=== PATIENT | female | born 1965 | race Caucasian/White ===

== ENCOUNTER 2024-01-16 10:25 | Emergency (ER) | payer BC, SELFPAY ==
[2024-01-16 10:39] VITALS: BP 137/74; PULSE 90; RESP 18; TEMP 36.1; O2SAT 99
--- NOTE | 2024-01-16 10:49 | ED.SKABFB ---
HPI - Skin/Abscess/Foreign Bdy General Chief complaint: Skin/Abscess/Foreign Body Stated complaint: migraine/rash on scalp Time Seen by Provider: 01/16/24 10:30 Source: patient Mode of arrival: ambulatory Limitations: no limitations History of Present Illness HPI narrative: Sandra is a 58-year-old female patient presenting to the clinic today with complaints of headache, nausea, and a rash on the left side of her scalp. She reports she is also having some left ear discomfort and left eye pain. States she has been under lot of stress-has been on antibiotics for a UTI then had to take nystatin for thrush. Also states that she is on a low-dose prednisone at this time for Crohn's exacerbation. Denies any fever, chills, or body aches. Is concerned about her blood pressure is it is been high at home and she thinks this is causing her headache. Electronic blood pressure is 137/74 and manual blood pressure was 148/88 in the clinic today. States she had a call out to her primary care doctor to send her and a prescription for some blood pressure medications. Related Data Home Medications Medication Instructions Recorded Confirmed prednisone 10 mg tablets in a dose See Rx Instructions .Route .COMPLEX 01/16/24 01/16/24 pack Allergies Allergy/AdvReac Type Severity Reaction Status Date / Time azithromycin AdvReac Intermediate Gastrointestinal Verified 01/16/24 10:48 Upset ciprofloxacin AdvReac Intermediate Muscle Pain Verified 01/16/24 10:49 codeine AdvReac Intermediate Nausea and Verified 01/16/24 10:50 Vomiting fluconazole [From Diflucan] AdvReac Intermediate Nausea and Verified 01/16/24 10:48 Vomiting levofloxacin [From Levaquin] AdvReac Intermediate Gastrointestinal Verified 01/16/24 10:50 Upset morphine AdvReac Mild Hives Verified 01/16/24 10:48 Review of Systems Review of Systems: Pertinent positives per HPI. Patient denies any fever, chills, visual changes, dizziness, cough, runny nose, sore throat, shortness of breath, chest pain, palpitations, vomiting, diarrhea, constipation, abdominal pain, or any urinary issues. PMFSH Comments At the time of my signature, I reviewed and agree with the nursing past medical, surgical, social, and family history. There is no relevant family history pertinent to the patient complaint. Exam Narrative: General: Well-developed, well nourished, in no apparent distress Head: Normocephalic, atraumatic, red, raise erythemic base rash with vesicular lesions to the forehead and scalp on the left side. Eyes: Pupils equally round and reactive to light bilaterally, EOM intact, sclera and conjunctive clear, no discharge, lids normal, Wood's lamp exam was performed and no dendritic lesions were visualized in the left eye Ears: TMs intact and clear, ear canals clear, no drainage, grossly hearing normal. Nose: Nares patent, no discharge, no inflammation, no sinus tenderness. Mouth: Oropharynx without lesions or masses, good dentition, MMM. Neck: Supple, trachea midline, no enlargement of anterior or posterior cervical nodes, no thyroid masses or goiter palpable. Cardio: Regular rate and rhythm, s1 and s2 normal, no murmur appreciated. Resp: Clear to auscultation bilaterally anteriorly and posteriorly, no rhonchi, rales, wheezing or rubs Course Course Emergency Course: Portions of this record may have been created with voice recognition software. Level of Care: Express Care Visit Vital Signs Vital signs: Vital Signs Temperature 36.1 C L 01/16/24 10:39 Pulse Rate 90 01/16/24 10:39 Respiratory Rate 18 01/16/24 10:39 Blood Pressure 137/74 01/16/24 10:39 Pulse Oximetry 99 01/16/24 10:39 Oxygen Delivery Room Air 01/16/24 10:39 Temperature 36.1 C L 01/16/24 10:39 Pulse Rate 90 01/16/24 10:39 Respiratory Rate 18 01/16/24 10:39 Blood Pressure 148/80 H 01/16/24 11:02 Pulse Oximetry 99 01/16/24 10:39 Oxygen Delivery Room Air
[2024-01-16 11:02] VITALS: BP 148/80
== END 2024-01-16 11:06 | disposition home or self-care (01) ==
PROVIDERS: Emergency Provider Nurse Practitioner Family
DX: B02.9 Zoster without complications (principal)
CPT/HCPCS: 99203; A9270; G0463

== ENCOUNTER 2024-12-02 08:43 | Outpatient (CLI) | payer BC, SELFPAY ==
--- OUTSIDE RECORDS SUMMARY | 2024-12-02 08:57 | XMS_ITS | Clinical Summary ---
Author Organization [facility] Address [address] [place] [address] Care Team Providers Care Auditor Name Role Phone Unknown, Provider Primary Care Provider Unavaila ble Source Comments [facility],non-owned Affiliates and Associated Physician Practices is amultiple site organization consisting of ambulatory clinics and hospital sitesin [place], [place], [place] and [place]. This disclosure is being madepursuant to the Care Everywhere program and may not contain all information available regarding this patient. Last updated 18.[facility] Allergies Active Allergy Reactions Criticality Noted Date Comments Azithromycin GI Discomfort Low 06/16/2020 Abdominal pain, vomiting. Prochlorperazine Unknown 12/17/2023 Diflucan Headache Medium 12/15/2020 Patient reports migraine for four days after taking Metronidazole Dizziness Low 12/15/2020 Hydrocodone Vomiting Low 01/10/2021 Levofloxacin Other Medium 05/22/2018 Inability to sleep for 30 plus hours/ anxiety Morphine Itching,Rash Medium 01/27/2013 Medications * Be aware that medications may not be up to date on this document. Alwaysverify current medications with the patient. Medication Sig Dispensed Refills Start Date End Date Status Cholecalciferol (VITAMIN D3) 40542 UNITSIndications:Cr ohn's disease of both small and large intestine without complication (HCC),Medication monitoring encounter,Other specified intestinal malabsorption (HCC) Take 1 (one) capsule by mouth every 7 days Active Multiple Vitamins-Minerals (Multivitamin Adult Extra C) CHEW Take 1 tablet by mouth once daily Active acetaminophen (Tylenol) 325 MG tablet Take 2 (two) tablets by mouth every 4 hours as needed Maximum allowable Acetaminophen amount = 4 Grams (4000 mg) / 24 hours. 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 Monthly or less 12/17/2023 Q2: How many drinks containi ng alcohol do you have on a typical day when you are drinking? 1 or 2 12/17/2023 Q3: How often do you have si x or more drinks on one occasion? Less than monthly 12/17/2023 Overall Financial Resource Strain (CARDIA) Answe r Date Recorded How hard is it for you to pa y for the very basics like food, housing, medical care, and heating? Not hard at all 12/17/2023 [facility] [place] [facility] Occupat ional Health - Occupational Stress Questionnaire Answer Date Recorded Do you feel stress - tense, restless, nervous, or anxious, or unable to sleep at night because your mind is troubled all the time - these days? Not at all 12/17/2023 Hunger Vital Sign Answer Date Recorded Within the past 12 months, y ou worried that your food would run out before you got the money to buy more. Never true 04/17/20 24 Within the past 12 months, t he food you bought just didn't last and you didn't have money to get more. Never true 12/17/2023 PRAPARE - Transportation Answer Date Re corded In the past 12 months, has l ack of transportation kept you from medical appointments or from getting medications? No 11/30 In the past 12 months, has l ack of transportation kept you from meetings, work, or from getting things needed for daily living? No 12/17/2023 Housing Stability Vital Sign Answer Chuck e Recorded In the last 12 months, was t here a time when you were not able to pay the mortgage or rent on time? No 12/17/2023 In the last 12 months, how many places have you lived? 1 12/17/2023 In the last 12 months, was t here a time when you did not have a steady place to sleep or slept in a half-way (including now)? No 12/17/2023 Sex and Gender Information Value Date Recorded Sex Assigned at Not on file Gender Identity Not on file Sexual Orientation Not on file Last Filed Vital Signs Vital Sign Reading Time Taken Comments Blood Pressure 146/96 08/30/2024 12:42 PM PROFESSIONAL ADVISOR Pulse 78 08/30/2024 12:42 PM PROFESSIONAL ADVISOR Temperature 36.6 C (97.8 F) 08/30/2024 12:42 PM PROFESSIONAL ADVISOR Respiratory Rate 18 12/21/2023 7:42 AM CDT Oxygen Saturation 100% 08/30/2024 12: 42 PM PROFESSIONAL ADVISOR Inhaled Oxygen Concentration - - Weight 114.5 kg (252 lb 6.4 oz) 024 12:42 PM PROFESSIONAL ADVISOR Height 170.2 cm (5' 7 ) 08/30/2024 12:4 2 PM PROFESSIONAL ADVISOR Body Mass Index 39.53 08/30/2024 12:42 PM PROFESSIONAL ADVISOR Plan of Treatment Upcoming Encounters Date Type Department Care Team (Latest Contact Info) Description 12/17/2024 10:15 AM CDT Hospital Encounter [facility] ENDOSCOPY [address] [place] [phone] Justina Henry MD [address] [place] [phone] Surgery General 12/17/2024 10:15 AM CDT - 12/17/2024 11:00 AM CDT Surgery [facility] ENDOSCOPY [address] [place] [phone] Justina Henry MD [address] [place] [phone] COLONOSCOPY SCREEN w/ shmais 12/24/2024 9:30 AM CDT Appointment [facility] MRI [address] [place] [phone] Tabatha Viveros PA-C [address] [place] [phone] 02/03/2025 1:30 PM CDT Office [place] [facility] [place] [address] [place] [address], [place] [phone] Justina Henry MD [address] [place] [phone] Scheduled Procedures Name Priority Associated Diagnoses Date/Ti me COLONOSCOPY SCREEN Screening for malignant neoplasm of colon Crohn's disease of both small and large intestine without complication (HCC) 12/17/2024 10:15 AM CDT Health Maintenance Due Date Last Done Comments COLOGUARD (AGES 45-75) - COLON CA SCREENING 1965 CT COLONOGRAPHY - COLON CA SCREENING 1965 FIT - COLON CA SCREENING 1965 FLEX SIG - COLON CA SCREENING 1965 PAP SMEAR 1965 COVID-19 VACCINE (#1) 1972 HIV SCREENING 1982 HEPATITIS C SCREENING 04/29/1985 DTAP/TDAP/TD VACCINES (1 - Tdap) 1986 HEPATITIS B VACCINE (1 of 3 - 19+ 3-dose series) 1986 PNEUMOCOCCAL VACCINE 50+ (1 of 2 - PCV) 1986 ZOSTER VACCINE (1 of 2) 1986 DEPRESSION SCREENING 09/01/2024 INFLUENZA VACCINE (Season Ended) 2025 MAMMOGRAM 07/15/2026 07/15/2024, 03/0 04/2024, 11/03/2023 SCREENING FOR DIABETES 12/18/2026 , 12/18/2023, 07/10/2020, Additional history exists LIPID TESTING 06/03/2029 06/03/2024, 06/04/2019 COLON MONITORING 12/11/2032 12/11/2022, 08/2023, 01/10/2021, Additional history exists COLONOSCOPY - COLON CA SCREENING 12/11/2032 12/11/2022, 12/11/2022, 01/10/2021, Additional history exists Colorectal Cancer Screening 12/11/2032 HIB VACCINE Aged Out No longer eligi ble based on patient's age to complete this topic HPV VACCINE Aged Out No longer eligi ble based on patient's age to complete this topic MENINGOCOCCAL (Group B) VACCINE SHARED DECISION-MAKING Aged Out No longer eligible based on patient's age to complete this topic MENINGOCOCCAL GROUPS A/C/Y/W VACCINE Aged Out No longer eligible based on patient's age to complete this topic Goals Goal Patient Goal Type Associated Problems Recent Progress Patient-Stated? Author Safety General On track( 020 1:26 PM CDT) No Chely Burris, CONG Note: Expected end date: Ongoing Interventions: Your nurse will assess your risk for falls/injury each visit Use appropriate and safe transfer methods Medication Management General On track( 024 10:41 AM CDT) No Chely Burris, CONG Note: Expected end date: Ongoing Interventions: Take all medications as prescribed Let your doctor know right away about any changes in your medications Medication Management General No Jazmín Santos RN Note: Expected end date: ONGOING Interventions: Take all medications as prescribed Let your doctor know right away about any changes in your medications Make sure to request a refill of your medication at least one week prior to your last dose Procedures Procedure Name Priority Date/Time Associated Diagnosis Comments BASIC METABOLIC PANEL (CALCIUM TOTAL) AM Draw 12/19/2023 6:34 AM CDT ENDOSCOPY, COLON, SCREENING Routine 12/11/2022 8:10 AM CDT LIPID PROFILE Routine 06/04/2019 11:47 AM CDT Crohn's disease of both small and large intestine without complication Medication monitoring encounter Other specified intestinal malabsorption from Last 3 Months or Most Recently Relevant to Health Maintenance Results * (ABNORMAL) BASIC METABOLIC PANEL (CALCIUM TOTAL) (12/19/2023 6:34 AM CDT) Pathologist [facility] Glucose 112(H) 70 - 105 mg/dL 12/19/2023 7:00 AM CDT [facility] Sodium 139 136 - 145 mmol/L 12/19/2023 7:00 AM CDT [facility] Potassium 4.1 3.5 - 5.1 mmol/L 12/19/2023 7:00 AM CDT [facility] Chloride 105 98 - 107 mmol/L 12/19/2023 7:00 AM CDT [facility] CO2 25 22 - 29 mmol/L 12/19/2023 7:00 AM CDT [facility] Calcium 8.4 8.4 - 10.4 mg/dL 12/19/2023 7:00 AM CDT [facility] Anion Gap 9 6 - 16 mmol/L 12/19/2023 7:00 AM CDT [facility] BUN 15 7 - 26 mg/dL 12/19/2023 7:00 AM CDT [facility] Creatinine 0.63 0.57 - 1.11 mg/dL 12/19/2023 7:00 AM CDT [facility] eGFR by CKD-EPI >90 >=90 mL/min/1.7 3 m2 12/19/2023 7:00 AM CDT [facility] Blood BLOOD SPECIMEN / Unknown Lab Venipuncture / Unknown 12/19/2023 6:34 AM CDT 12/19/2023 6:42 AM CDT Cj Hernandez MD LAB - CHEMISTRY QUINTIN MOTA [facility] Organization Address City/State/ZIP Co de Phone Number -[facility] [address] [place] [address] * ENDOSCOPY, COLON, SCREENING (12/11/2022 8:10 AM CDT) Report Endoscopy POC Endoscopy Department Report _ Patient Name: Sandra Lucas Procedure Date: 12/11/2022 8:10 AM Date of : 1965 Classification: Outpatient Gender: Female Ethnicity: Not or Race: White _ Providers: Kelsie Meyers (Labundy)MD, Dustin Trotter (Fellow) Referring MD: Ze Nevarez MD (Referring MD), Jorge Farr (Referring MD) Procedure: Colonoscopy Indications: Crohn's disease activity assessment. Last colonoscopy 2020. Currently of Crohn's medical therapy. Medications: Monitored Anesthesia Care Patient Profile: 57 yo F with history of ileocolonic Crohn's disease presenting for colonoscopy off therapy. Description of Procedure: Pre-Anesthesia Assessment: - Prior to the procedure, a History and Physical was performed, and patient medications and allergies were reviewed. The patient's tolerance of previous anesthesia was also reviewed. The risks and benefits of the procedure and the sedation options and risks were discussed with the patient. All questions were answered, and informed consent was obtained. Prior Anticoagulants: The patient has taken no previous anticoagulant or antiplatelet agents. ASA Grade Assessment: III - A patient with severe systemic disease. After reviewing the risks and benefits, the patient was deemed in satisfactory condition to undergo the procedure. After I obtained informed consent, the scope was passed under direct vision. Throughout the procedure, the patient's blood pressure, pulse, and oxygen saturations were monitored continuously. The CF-[id number] was introduced through the anus and advanced to the cecum, identified by appendiceal orifice and ileocecal valve. The colonoscopy was performed without difficulty. The patient tolerated the procedure well. The quality of the bowel preparation was evaluated using the BBPS ([place] Bowel Preparation Scale) with scores of: Right Colon = 3, Transverse Colon = 3 and Left Colon = 3 (entire mucosa seen well with no residual staining, small fragments of stool or opaque liquid). The total BBPS score equals 9. The terminal ileum, ileocecal valve, appendiceal orifice, and rectum were photographed. Findings: The perianal and digital rectal examinations were normal. There was evidence of a prior end-to-side ileo-colonic anastomosis in the cecum. This was patent and was characterized by edema, erythema, friable mucosa and ulceration. The anastomosis was not traversed but the ileum could be viewed beyond it. The area of anastamosis was biopsied with a cold forceps for histology. The terminal ileum appeared normal (although not intubated). This was biopsied with a cold forceps for histology. There is no endoscopic evidence of erythema, inflammation or polyps in the entire colon. Multiple biopsies were obtained with cold forceps for histology randomly right and left colon. A few small-mouthed diverticula were found in the left colon. External hemorrhoids were found during retroflexion. The hemorrhoids were small. Estimated Blood Loss: Estimated blood loss was minimal. Complications: No immediate complications. Impression: - Patent end-to-side ileo-colonic anastomosis, characterized by edema, erythema, friable mucosa and ulceration. Biopsied. - The examined portion of the ileum was normal (visible but not intubated). Biopsied. - Diverticulosis in the left colon. - External hemorrhoids. - Multiple biopsies were obtained right and left colon. Recommendation: - Patient has a contact number available for emergencies. The signs and symptoms of potential delayed complications were discussed with the patient. Return to normal activities tomorrow. Written discharge instructions were provided to the patient. - Resume previous diet. - Continue present medications. - Await pathology results. - Repeat abdominal imaging in mid to late December (last MRE completed Oct 2022) Procedure Code(s): --- Professional --- 64873, Colonoscopy, flexible; with biopsy, single or multiple Diagnosis Code(s): --- Professional --- K50.10, Crohn's disease of large intestine without complications Z98.0, Intestinal bypass and anastomosis status K64.4, Residual hemorrhoidal skin tags K57.30, Diverticulosis of large intestine without perforation or abscess without bleeding CPT copyright 2019 [employer]. All rights reserved. The codes documented in this report are preliminary and upon cpc coder review may be revised to meet current compliance requirements. Kelsie Meyers MD (Labundy) 12/11/2022 9:58:11 AM Note Initiated On: 12/11/2022 8:10 AM Number of Addenda: [address] [employer]ATION 12/11/2022 8:10 AM CDT Kelsie Meyers MD GI PROCEDURE ORDE NAKUL [facility] [employer] * (ABNORMAL) LIPID PROFILE (06/04/2019 11:47 AM CDT) Cholesterol Total 199 <200 mg/dL 06/04/2019 1:34 PM [facility] HDL 75 >40 mg/dL 06/04/2019 1:34 PM [facility] Comment: ATP III Classification of HDL Cholesterol: <40 mg/dL: Considered a major risk factor. >60 mg/dL: Considered a negative risk factor. LDL Calculated 109(H) <100 mg/dL 06/04/2019 1:34 PM [facility] Comment: ATP III Classification of LDL Cholesterol: <100 mg/dL: Optimal 100 - 129 mg/dL: Near Optimal/Above Optimal 130 - 159 mg/dL: Borderline High 160 - 189 mg/dL: High >190 mg/dL: Very High Triglycerides 74 <150 mg/dL 06/04/2019 1:34 PM [facility] Comment: ATP III Classification of Triglycerides: <150 mg/dL: Normal 150 - 199 mg/dL: Borderline High 200 - 400 mg/dL: High >500 mg/dL: Very High Blood BLOOD SPECIMEN / Unknown Lab Venipuncture / Unknown 06/04/2019 11:47 AM CDT 06/04/2019 12:07 PM CDT Kelsie Meyers MD LAB - CHEMISTRY O RDERABLES [facility] [address] [place] [address] from Last 3 Months or Most Recently Relevant to Health Maintenance Advance Directives * Full Code (Latest Code Status on File) Date Activated Date Inactivated Comments 12/17/2023 4:29 PM 12/21/2023 11:39 AM Care Teams Auditor Relationship Specialty Start Date End Date Unknown, Provider PCP - General 04/22/24
--- OUTSIDE RECORDS SUMMARY | 2024-12-02 08:57 | XMS_ITS | Clinical Summary ---
Author Organization [facility] Address [address] [place] [address] Care Team Providers Care Pleat Taper Name Role Phone Erna West MD Primary Care Provider + Allergies Active Allergy Reactions Criticality Noted Date Comments Azithromycin GI Upset,Vomiting Low 06/16/2020 Abdominal pain, vomiting. Ciprofloxacin Joint Pain 04/30/2024 Fluconazole Dizziness,Headache Medium 12/15/2020 Patient reports migraine for four days after taking Hydrocodone GI Upset,Vomiting Low 01/10/2021 Levofloxacin Hallucinations,Hyper act amanda,Tachycardia,Other (see comment) Medium 05/22/2018 Inability to sleep for 30 plus hours/ anxiety Metronidazole Dizziness Low 12/15/2020 Morphine Sulfate Atopic Dermatitis,Itching 04/30/2024 Prochlorperazine Unknown 12/17/2023 Medications albuterol (PROVENTIL) (2.5 MG/3ML) 0.083% nebulizer solution Take 3 mLs (2.5 mg total) by nebulization . 4 Active ipratropium-albut christiana (DUONEB) 0.5-2.5 (3) MG/3ML Solution 4 Active Multiple Vitamins-Minerals (MULTIVITAMIN ADULT EXTRA C OR) Ac tive Cholecalciferol 250 MCG (02829 UT) Cap Take 1 capsule by mouth once a week. Active Cyanocobalamin 100 MCG Tab Take 100 mcg by mouth daily. 4 Active hydroCHLOROthiazi de (MICROZIDE) 12.5 MG tabletIndications :Essential hypertension Take 12.5 mg total by mouth daily 90 tablet 3 4 Active Active Problems Problem Noted Date Diagnosed Date Mild intermittent asthma (HHS/HCC) 06/07/2024 Overview (06/07/2024): Had PFTs a few years ago and it showed mild asthma. Osteopenia 06/03/2024 Overview (06/03/2024): DEXA 03/2023. T score osteopenia in left femoral neck. Normal in L spine. Crohn's colitis, other complication (CMS/HCC HHS /HCC) 04/30/2024 Overview (04/30/2024): Has had it for a couple decades. Had a recent SBO. Had a partial colectomy. Has some stricture in the distal small bowel and some specialists in the past recommended a resection of that area. Did not tolerate biologics. Not currently on anything. Sees Dr. Trotter and Dr. Henry. Assessment & Plan (04/30/2024 9:17 AM CDT): She will update GI labs as requested. Follows with GI at [facility]. Will get records. 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 History of congestive heart failure 04/30/2024 Overview (06/04/2024): Was steroid induced, now resolved. Saw Dr. Rees. Echo 06/2024: The left ventricular size is normal. The left ventricular systolic function is normal. Estimated left ventricular ejection fraction is 55-60%. Left ventricular diastolic function is normal. Wall motion appears normal in all segments. The right ventricular size is normal. Right ventricular systolic function is normal. No significant valvular abnormalities. Assessment & Plan (04/30/2024 9:33 AM CDT): Will attempt to acquire records on this history. It was in the context of high- dose steroids for her Crohn's disease. Will order an echo and referral to cardiology to reestablish. JOE (obstructive sleep apnea) 04/30/2024 Overview (06/01/2024): Moderate JOE on SNAP testing 05/28/24. Assessment & Plan (04/30/2024 9:34 AM CDT): Will order sleep apnea testing to evaluate and determine if this is contributing to her hypertension. Prediabetes 04/30/2024 Chronic bilateral low back pain without sciatica 04/30/2024 Overview (04/30/2024): Chronic low back pain. Reports that she did have an MRI in the past. Notes some increasing weakness. Assessment & Plan (04/30/2024 9:38 AM CDT): Will make arrangements for physical therapy and address further at next visit. Also will request records for her MRI. 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 It swells significantly when she has illness it is present in the right lower abdomen. Consulted with general surgery who did not recommend resection due to complication risk. History of small bowel obstruction 12/17/2023 Essential hypertension 05/22/2018 Overview (04/30/2024): BP has been high every time she goes to the GI physician. Home reading recently was 140-160s/80-90s. Assessment & Plan (04/30/2024 9:18 AM CDT): Not controlled. Will initiate lisinopril 10 mg daily which she will take in the evening. CMP ordered. Vitamin B12 deficiency 02/04/2014 Assessment & Plan (04/30/2024 9:33 AM CDT): Will repeat B12 level to determine if this is a persistent issue. Encounters Date Type Department Care Team Description 09/17/2024 11:15 AM PR MANAGER Office Visit [facility] [phone] Darnell Rees MD CHF (3mo) 09/17/2024 Travel 09/10/2024 Telephone [facility] [address] [place] [phone] Erna West MD Other from Last 3 Months Immunizations Name Administration Dates Next Due Pneumococcal (Prevnar 20) 04/30/2024 Family History Medical History Relation Comments Aortic stenosis Father CHF Father Heart Disease Father Hyperlipidemia Father Hypertension Father Pulmonary embolism Father Cancer Maternal Grandmother Cancer Mother Diabetes Paternal Grandfather Heart Attack Paternal Grandfather Mental Health Sister Relation Status Comments Father Alive Maternal Grandfather Maternal Grandmother Mother Paternal Grandfather Paternal Grandmother Sister Alive Social History Tobacco Use Types Packs/Day Years Used Date Smoking Tobacco: Never Passive Smoke Exposure: Never Smokeless Tobacco: Never Tobacco Cessation:Counseling Given: Not Answered Alcohol Use Standard Drinks/Week Comments Never 0 (1 standard drink = 0.6 oz pur e alcohol) PHQ-2 Answer Date Recorded Patient Health Questionnaire-2 Score 0 06/07/2024 Comments No Sex and Gender Information Value Date Recorded Sex Assigned at Not on file Legal Sex Female 4:03 PM CDT Gender Identity Not on file Sexual Orientation Not on file Last Filed Vital Signs Vital Sign Reading Time Taken Comments Blood Pressure 114/72 09/17/2024 11:20 AM PR MANAGER Pulse 81 09/17/2024 11:20 AM PR MANAGER Temperature 36.1 C (96.9 F) 08/02/2024 9:03 AM PR MANAGER Respiratory Rate 19 08/02/2024 9:03 AM PR MANAGER Oxygen Saturation 94% 09/17/2024 11: 20 AM PR MANAGER Inhaled Oxygen Concentration - - Weight 114.9 kg (253 lb 3.2 oz) 025 11:20 AM PR MANAGER Height 170.2 cm (5' 7 ) 09/17/2024 11:2 0 AM PR MANAGER Body Mass Index 39.66 09/17/2024 11:20 AM PR MANAGER Plan of Treatment Upcoming Encounters Date Type Department Care Team (Late st Contact Info) Description 12/09/2024 10:10 AM CDT Office Visit [facility] [address] [place] [address] Erna West MD [address] [place] [address] 09/16/2025 11:00 AM PR MANAGER Office Visit [facility] [phone] Darnell Rees MD 3 [facility] [address] [place] [address] Health Maintenance Due Date Last Done Comments Cervical Cancer Screening Pa p Smear (Age 30 to 64) Every 3 Years 1967 Hepatitis C 1985 DTaP, Tdap and Td Vaccines ( 1 - Tdap) 1986 Hepatitis B Vaccines (1 of 3 - 19+ 3-dose series) 1986 Zoster Vaccines (1 of 2) 2017 COVID-19 Vaccine (2023-2 5 season) 2024 PHQ-2 (Physician [place]) 09/01/2024 06/07/2024 Annual Physical 06/07/2025 06/07/2024 Mammogram Screening 07/15/2026 07/15/2024, 11/07/2023, 11/03/2023 Cervical Cancer Screening Pa p with HPV Testing (Age 30 to 64) Every 5 Years 11/02/2028 11/03/2023, 10/14/2022 Cervical Cancer Screening wi th HPV 11/02/2028 Colorectal Cancer Screening Colonoscopy (10 Years) 12/11/2033 12/12/2023 Pneumococcal Vaccine: Pediatrics (0 to 5 Years) and At-Risk Patients (6 to 64 Years) Completed 04/30/2024 Meningococcal B Vaccine Aged Out No l onger eligible based on patient's age to complete this topic Meningococcal Vaccine Aged Out No norbert ronan eligible based on patient's age to complete this topic RSV Immunizations Under 20 Months Aged Out No longer eligible b ased on patient's age to complete this topic Procedures Procedure Name Priority Date/Time Associated Diagnosis Comments MG DIAG W DENISE RT DIGI Routine 07/15/2024 10:46 AM PR MANAGER Abnormal finding on breast imaging COLONOSCOPY GENERIC (SCAN ORDER) Routine 12/12/2023 OUTSIDE CYTOPATH CERV/VAG INTERPRET (PAP) 11/03/2023 from Last 3 Months or Most Recently Relevant to Health Maintenance Results * MG DIAG W DENISE RT DIGI (07/15/2024 10:46 AM PR MANAGER) Anatomical Region Laterality Modality Breast Right Mammography 07/15/2024 11:0 8 AM PR MANAGER Impressions 07/15/2024 11:14 AM PR MANAGER ===== IMPRESSION: ===== 1. No mammographic evidence of malignancy. Interval decrease in size of benign- appearing right retroareolar lymph node. Assessment: ACR BI-RADS 2 - BENIGN FINDING(S) Recommendation: 1:Routine Screening Bilateral Comments: Ordered By: ERNA WEST Interpreted By: Porfirio Grace, 07/15/2024 11:08 AM Narrative 07/15/2024 11:14 AM PR MANAGER [facility] [place] [address] EXAMINATION: Digital right diagnostic mammogram with 3-D tomosynthesis. Right breast ultrasound [id number] EXAM DATE/TIME: 07/15/2024 10:45 AM REASON FOR EXAM: abnormal mammogram/usn, 6 month follow up COMPARISON: 11/03/2023. 11/07/2023 TECHNIQUE: Digital diagnostic mammography of the right breast was performed in addition to 3-D Tomosynthesis technique. This study was read with the assistance of a computer-aided detection system. TISSUE DENSITY: There are scattered areas of fibroglandular density. Findings:Previously identified right retroareolar nodule is smaller on today's exam and barely perceptible. Best seen on MLO images. No malignant microcalcifications.. Ultrasound at the 9:00 position of the right breast 2.5 cm from the nipple. There is a well-defined hypoechoic nodule with fatty hilum. Most likely a benign lymph node. No distinct flow to the hilum. Smaller than on prior exam. Measures 3.3 x 1.5 x 3.1 mm. Prior measurement of 5.5 x 3.2 x 5.2 mm No new area of focal asymmetry, dominant mass lesion, area of skin thickening, or cluster of suspicious appearing calcifications in the breast to suggest malignancy. Erna West MD MAMMO Final Re sult * COLONOSCOPY (12/12/2023) [facility] Scanned SCANNING Final Resu lt [facility] * PAP SMEAR WITH HPV (11/03/2023) 11/03/2023 [facility] Scanned SCANNING Final Resu lt from Last 3 Months or Most Recently Relevant to Health Maintenance Insurance Care Teams Pleat Taper Relationship Specialty Start Date End Date Erna West MD [address] [place], [place] [phone] PCP - General FAMILY PRACTICE 04/30/24
--- OUTSIDE RECORDS SUMMARY | 2024-12-02 08:57 | XMS_ITS | Encounter Summary ---
Author Organization [facility] Address [address] [place] [address] Care Team Providers Care Wastewater Engineer Name Role Phone Erna Tracy MD Primary Care Provider + Encounter Details Date Type Department Care Team (Late Contact Info) Description 08/24/2024 [employer] Message Enc [facility] [address] [place] [phone] [facility] Provider mri Social History Tobacco Use Types Packs/Day Years Used Date Smoking Tobacco: Never Passive Smoke Exposure: Never Smokeless Tobacco: Never Alcohol Use Standard Drinks/Week Comments Never 0 (1 standard drink = 0.6 oz pur e alcohol) PHQ-2 Answer Date Recorded Patient Health Questionnaire-2 Score 0 06/07/2024 Comments No Sex and Gender Information Value Date Recorded Sex Assigned at Not on file Legal Sex Female 4:03 PM CDT Gender Identity Not on file Sexual Orientation Not on file documented as of this encounter Plan of Treatment Upcoming Encounters Date Type Department Care Team (Late Contact Info) Description 12/09/2024 10:10 AM CDT Office Visit [facility] [address] [facility] [address] [place] [phone] Erna Tracy MD [address] [address] 09/16/2025 11:00 AM CD REACTOR OPERATOR HEAD Office Visit [facility] [phone] Darnell Rees MD 3 [facility] [address] [place] [address] documented as of this encounter Visit Diagnoses Not on filedocumented in this encounter Care Teams Wastewater Engineer Relationship Specialty Start Date End Date Erna Tracy MD [address] [place] [phone] PCP - General FAMILY PRACTICE 04/30/24 documented as of this encounter
--- OUTSIDE RECORDS SUMMARY | 2024-12-02 08:57 | XMS_ITS | Encounter Summary ---
Author Organization [facility] Address [address] [place] [address] Care Team Providers Care Audit Reviewer Name Role Phone Erna Tracy MD Primary Care Provider + Encounter Details Date Type Department Care Team (Latest Contact Info) Description 08/30/2024 [employer] Message [facility] [place] [address] [phone] [employer], [facility] Provider PAIN CLINIC CONSULTATION Social History Tobacco Use Types Packs/Day Years [...] Description 12/09/2024 10:10 AM CDT Office Visit [facility] - [place] [address] [facility] [address] [place] [phone] Erna Tracy MD [address] [place] [address] 09/16/2025 11:00 AM COMB FIXER Office Visit [facility] [phone] Darnell Rees MD [address] [place] [address] [address] [place] [phone] documented as of this encounter Visit Diagnoses Not on filedocumented in this encounter Care Teams Audit Reviewer Relationship Specialty Start Date End Date Erna Tracy MD [address] [place] [phone] PCP - General FAMILY PRACTICE 04/30/24 documented as of this encounter
--- OUTSIDE RECORDS SUMMARY | 2024-12-02 08:57 | XMS_ITS | Encounter Summary ---
Author Organization [facility] Address [address] [place] [address] Care Team Providers Care Etcher Enameling Name Role Phone Erna Tracy MD Primary Care Provider + Encounter Details Date Type Department Care Team (Late Contact Info) Description 08/26/2024 [employer] Message Enc [facility] [address] [phone] [facility] Provider number Social History Tobacco Use Types Packs/Day Years [...] on file documented as of this encounter Progress Notes * Erna Tracy MD - 09/02/2024 7:21 AM CST Noted. BOARD ERECTOR documented in this encounter Plan of Treatment Upcoming Encounters Date Type Department Care Team (Late Contact Info) Description 12/09/2024 10:10 AM CDT Office Visit [facility] [address] [address] Erna Tracy MD [address] [place] [address] 09/16/2025 11:00 AM BILLBOARD ERECTOR Office Visit [facility] [phone] Darnell Rees MD 3 [facility] [address] [place] [address] documented as of this encounter Visit Diagnoses Not on filedocumented in this encounter Care Teams Etcher Enameling Relationship Specialty Start Date End Date Erna Tracy MD [address] [place] [address] PCP - General FAMILY PRACTICE 04/30/24 documented as of this encounter
[2024-12-02 10:41] LABS: Hematocrit 39.2 % (37.0-47.0); Hemoglobin 12.6 g/dL (12.0-15.0); Immature Platelet Fraction Pct 4.5 % (0.9-11.2); Mean Corpuscular HGB Conc 32.1 g/dl (32-36); Mean Corpuscular Hemoglobin 28.6 pg (26-34); Mean Corpuscular Volume 89.1 fl (80-100); Mean Platelet Volume 10.7 fl (7.4-10.4); Platelet Count Result 265 k/mm3 (150-375); Red Cell Distribution Width 12.9 % (11.5-14.5); White Blood Count 5.5 K/mm3 (4.5-10.0)
[2024-12-02 10:50] LABS: CRP < 0.5 mg/dL (<1.0)
[2024-12-02 11:03] LABS: Iron 115 ug/dL (37-170)
[2024-12-02 11:05] LABS: Atypical Lymphocytes Present; Band Neutrophils Percent 1 % (0-6); Basophils Percent Manual 0 % (0-1); Eosinophils Absolute Manual 0.05 K/mm3 (0.02-0.50); Eosinophils Percent Manual 1 % (0-4); Lymphocytes Absolute Manual 1.92 K/mm3 (1.1-4.5); Lymphocytes Percent Manual 35 % (18-44); Monocytes Absolute Manual 0.38 K/mm3 (0.1-0.90); Monocytes Percent Manual 7 % (3-9); Neutrophils Absolute Manual 3.13 K/mm3 (1.7-7.2); Neutrophils Percent Manual 56 % (46-73); Platelet Estimate Adequate (Adequate); Total Cells Counted 100
[2024-12-02 11:06] LABS: Hypochromasia 1+; Schistocytes None Seen
[2024-12-02 11:13] LABS: Percent Iron Saturation 38 % (20-50)
[2024-12-02 11:29] LABS: Vitamin D 25 Hydroxy 31.8 ng/mL
[2024-12-02 11:35] LABS: Hepatitis B Surface Antigen Negative (Negative)
[2024-12-02 11:53] LABS: Hepatitis B Surface Anti Res Negative
[2024-12-03 21:28] LABS: Hepatitis B Core Ab Total NON-REACTIVE (NON-REACTIVE)
[2024-12-06 12:13] LABS: NIL 0.02 IU/mL; Quantiferon TB Plus, 1T NEGATIVE (NEGATIVE)
== END 2024-12-02 08:44 | disposition home or self-care (01) ==
PROVIDERS: PCP Student in an Organized Health Care Education/Training Program
DX: K50.80 Crohn's disease of both small and large intestine without complications (principal); D84.821 Immunodeficiency due to drugs; Z79.899 Other long term (current) drug therapy
CPT/HCPCS: 36415; 82306; 82607; 82728; 83540; 83550; 85025; 85055; 86140; 86480; 86704; 86706; 87340